=== PATIENT | female | born 1970 | race Caucasian/White ===

== ENCOUNTER → 2020-08-09 | Day surgery (SDC) | payer OTHER, SELFPAY ==
--- NOTE | 2020-08-09 11:56 | RAD REPORT ---
EXAM DESCRIPTION: US - Fine Needle Asp Breast Guide - 08/09/2020 10:58 am CLINICAL HISTORY: N60.02 COMPARISON: No comparisons FINDINGS: Preoperative diagnosis: Large left breast cyst. Post operative diagnosis: Same. Conscious Sedation: None Fluoroscopy time: None Contrast used: None Estimated blood loss: Minimal Specimens:Cyst fluid The left breast was prepped and draped in the usual sterile fashion. 1% lidocaine was infiltrated int o the subcutaneous tissues for local anesthesia. Real time ultrasound scanning of the upper-outer lef t breast demonstrated a large 4-5 cm cyst with benign features.. Under ultrasound guidance, using a 1 8-gauge needle, the entire cyst was drained. About 35 cc of brown fluid was obtained. A small sample was sent for lab studies. The entire cyst was seen to collapse. There were no complications. IMPRESSION: Successful ultrasound-guided left breast cyst aspiration as detailed.
== END ==
LOC: FNA 09:32
PROVIDERS: ATTEND Clinical Nurse Specialist Women's Health
PROC: 0H9U3ZX Drainage of Left Breast, Percutaneous Approach, Diagnostic (ICD-10-PCS; principal; 2020-08-09)
PROC: BH41ZZZ Ultrasonography of Left Breast (ICD-10-PCS; 2020-08-09)
DX: N60.02 Solitary cyst of left breast (principal)
CPT/HCPCS: 10005; 76942; 88162